=== PATIENT | female | born 1985 | race Caucasian/White ===

== ENCOUNTER 2016-08-01 16:24 | Emergency (ER) | payer OTHER ==
[2016-08-01 16:37] VITALS: BP 115/80
--- NOTE | 2016-08-01 16:46 | UC ---
[facility] HPI - HPI Summary HPI Summary: complaint of dentla pain in her mouth janey started approx 2 days ago now has fluid around it upper gum left side hasn't called a dentist yet has been taking ibuprofen 800 mg PO without relief denies fever ad chills currently taking kelfex for infection has been on keflex for 2 days - History of Current Complaint Chief Complaint: UCDentalProblem Stated Complaint: ORAL COMPLAINT Time Seen by Provider: 08/01/16 16:29 Hx Last Menstrual Period: 07/12/16- had & tubal - Allergies/Home Medications Allergies/Adverse Reactions: Allergies Allergy/AdvReac Type Severity Reaction Status Date / Time Amoxicillin Allergy Intermediate Hives Verified 08/01/16 16:37 Home Medications: Home Medications Cephalexin CAP* [Keflex CAP*] 500 mg PO QID 08/01/16 [History Confirmed 08/01/16 ] Ibuprofen TAB* [Motrin TAB* 800 MG] 800 mg PO ONCE 08/01/16 [History Confirmed 08/01/16] PMH/Surg Hx/FS Hx/Imm Hx Previously Healthy: No - healing from recent , surgical wound infection - Surgical History Surgical History: Yes Surgery Procedure, Year, and Place: x5. tubal 06/2016 - Family History Known Family History: Positive: Hypertension - father Negative: Cardiac Disease, Diabetes - Social History Occupation: Unemployed Lives: With Family Alcohol Use: None Substance Use Type: None Smoking Status (MU): Light Every Day Tobacco Smoker Type: Cigarettes Amount Used/How Often: 1/2 ppd Cessation Counseling: Patient Advised to Stop - Immunization History Most Recent Influenza Vaccination: [id number] Review of Systems Constitutional: Negative Skin: Other - surgical incesion abdomen Eyes: Negative ENT: Dental Pain Respiratory: Negative Cardiovascular: Negative Gastrointestinal: Negative Genitourinary: Negative Motor: Negative Neurovascular: Negative Musculoskeletal: Negative Neurological: Negative Psychological: Negative All Other Systems Reviewed And Are Negative: Yes Physical Exam Triage Information Reviewed: Yes Appearance: No Pain Distress, Well-Nourished, Obese Vital Signs: Initial Vital Signs Temp 97.5 F 08/01/16 16:32 Pulse 71 08/01/16 16:32 Resp 16 08/01/16 16:32 BP 115/80 08/01/16 16:32 Pulse Ox 100 08/01/16 16:32 Vital Signs Reviewed: Yes Eyes: Positive: Conjunctiva Clear ENT: Positive: Pharynx normal, TMs normal. Negative: Nasal congestion Dental: Positive: Abscess @ - tooth 4 Neck: Positive: No Lymphadenopathy Respiratory: Positive: Lungs clear, Normal breath sounds, No respiratory distress Cardiovascular: Positive: RRR, No Murmur, Pulses Normal Abdomen Description: Positive: Nontender, Soft Bowel Sounds: Positive: Present Musculoskeletal: Positive: No Edema Neurological: Positive: Alert Psychological: Positive: Other: - appears fatigued Skin: Positive: Other - surgical incision suprapubic area- 1x1cm are of erythema - no drainage,well approximated Dental Complaint Course/Dx - Course Course Of Treatment: exam completed. will change from keflex ot clindamycin d/ t dental abscess. surgical scar infection improving. followup with dentist - Differential Dx/Diagnosis Differential Diagnosis/Dx: Dental Abscess Provider Diagnoses: dental abscess Discharge - Discharge Plan Condition: Stable Disposition: HOME Prescriptions: Clindamycin CAP* [Cleocin 150 MG CAP*] 150 mg PO Q6H #40 cap oxyCODONE/Acetamin 5/325 MG* [Percocet 5/325 TAB*] 1 tab PO Q6H PRN #12 tab MDD 4 PRN Reason: Pain (Dental) Patient Education Materials: Dental Abscess (ED) Referrals: No Primary Care Phys,NOPCP [Primary Care Provider] - Additional Instructions: Stop keflex and start taking clindamycin as directed call your dentist for further treatment and followup care DENTAL ABSCESS What is a Dental Abscess? A dental abscess is an infection around the root of a tooth or in the gums or jawbone. The infection causes pus to collect, and a lump can appear. Dental abscesses often get their start when bacteria invade a decayed tooth; the decay may then travel to the gums or jawbone. Decay can also begin in the mouth when teeth are not brushed or flossed properly. Symptoms Might Include: In general, you'll start to have a fever, redness and swelling of the gums or cheek. If you have a lump it may feel hot. Other signs include tooth or mouth pain, a loose tooth, or not being able to close your mouth all the way. If the abscess spreads, your face, neck, or chest may swell. Treatment Recommendations: Rinse your mouth with warm water every hour or as needed to ease the pain. This will help draw the infection from the abscess. For pain, you may take non-prescription medicines such as acetaminophen ( Tylenol) or ibuprofen (Motrin, Advil). To help ease the pain, do not chew on the sore side for at least 2 days; you may need to limit yourself to a liquid diet. Putting ice on your face over the affected area may also relieve the pain. Apply the ice for 10 to 20 minutes out of every hour. Do not leave the ice on for long periods or you can get frostbite. If the abscess is drained, there may be a small hole or drain. Keep the area free of food by rinsing with water after eating. You'll need to return or be seen by a dentist to have the drain removed. The healthcare provider may have prescribed an antibiotic medicine. The medicine should be taken until it is completely gone, even if you are feeling better. If you stop taking the medicine early, the infection may not be completely gone, and the medication may not work the next time. To prevent abscesses: [place] regularly with a toothbrush recommended by your dentist. Floss daily and use a fluoride mouthwash, toothpaste, tablets, or supplements as instructed by your dentist or dental hygienist. Reduce the amount of sugar in your diet. Call Your Doctor or Return Here IF: You have a high temperature Your pain becomes worse You have any new symptoms or problems that may be due to the medicine you are taking You have new or increased swelling in your face, jaw, cheek, eye, or neck You have any other new symptoms that worry you
== END 2016-08-01 17:08 | disposition home or self-care (01) ==
LOC: UCCORT 16:24
DX: K04.7 Periapical abscess without sinus (principal); Z88.0 Allergy status to penicillin; F17.210 Nicotine dependence, cigarettes, uncomplicated
CPT/HCPCS: 99202; G0463

== ENCOUNTER 2016-09-23 14:27 | Emergency (ER) | payer OTHER ==
[2016-09-23 14:41] VITALS: BP 114/70
--- NOTE | 2016-09-23 14:56 | UC ---
Throat Pain/Nasal Robert HPI - HPI Summary HPI Summary: The patient comes in today for: 1. Sore throat: Onset: 2-3 days. Palliative/Provocative: swallowing makes it worse. Tylenol has not helped. Quality: [place] Region: Posterior pharynx. Severity: 5/10 Time: Constant. Associated symptoms: Fevers: None. Rhinitis: Yellow. Sinus pressure: Present. Cough: "a little one." Productive of yellow material. Upper tooth pain: Present. Recent antibiotics: None. Patient states that she had taken cephalexin with no problems. * - History of Current Complaint Chief Complaint: UCGeneralIllness Stated Complaint: SORE THROAT,EAR PAIN,COUGH Time Seen by Provider: 09/23/16 14:50 Hx Obtained From: Patient Hx Last Menstrual Period: 07/12/16- had & tubal ?: No - Allergies/Home Medications Allergies/Adverse Reactions: Allergies Allergy/AdvReac Type Severity Reaction Status Date / Time Amoxicillin Allergy Intermediate Hives Verified 09/23/16 14:41 Home Medications: Home Medications Acetaminophen [Acetaminophen Extra Stren] 1,000 mg PO DAILY 09/23/16 [History Confirmed 09/23/16] Escitalopram Oxalate [Lexapro] 20 mg PO DAILY 09/23/16 [History Confirmed ] Fluconazole 100 MG TAB* [Diflucan 100 MG TAB*] 100 mg PO DAILY 09/23/16 [ History Confirmed 09/23/16] PMH/Surg Hx/FS Hx/Imm Hx Previously Healthy: No - Yeast infection. Endocrine History Of: Denies: Diabetes, Thyroid Disease, Hyperthyroidism, Hypothyroidism, Dyslipidemia Cardiovascular History Of: Denies: Cardiac Disorders, Hypertension, Pacemaker/ICD, Myocardial Infarction , Congestive Heart Failure, Atrial Fibrillation, Deep Vein Thrombosis, Bleeding Disorders Respiratory History Of: Denies: COPD, Asthma, Bronchitis, Pneumonia, Pulmonary Embolism GI/ History Of: Denies: Gastroesophageal Reflux, Ulcer, Gastrointestinal Bleed, Gall Bladder Disease, Kidney Stones, Diverticulitis, Renal Disease, Urosepsis Neurological History Of: Denies: TIA, CVA, Dementia, Seizures, Migraine Psychological History Of: Reports: Anxiety, Depression - Post- depression : She delivered [birth year] Denies: Bipolar Disorder, Schizophrenia, Post Traumatic Stress Disorder Cancer History Of: Denies: Lung Cancer, Colorectal Cancer, Breast Cancer, Prostate Cancer, Cervical Cancer Other History Of: Negative For: HIV, Hepatitis B, Hepatitis C, Anticoagulant Therapy - Surgical History Surgical History: Yes Surgery Procedure, Year, and Place: x5. tubal 06/2016. Hx spherocytosis--spleen taken out 1997. - Family History Known Family History: Positive: Hypertension - father Negative: Cardiac Disease, Diabetes - Social History Occupation: Unemployed Alcohol Use: None Substance Use Type: None Smoking Status (MU): Light Every Day Tobacco Smoker Type: Cigarettes Amount Used/How Often: 1/2 ppd - Immunization History Most Recent Influenza Vaccination: [id number] Review of Systems Constitutional: Negative Skin: Negative Eyes: Negative, Other - She feels at times that her vision goes "crossed-eyed" from time to time. She would like information on local ophthalmologists. ENT: Sore Throat, Nasal Discharge Respiratory: Shortness Of Breath, Cough Cardiovascular: Negative Gastrointestinal: Negative Genitourinary: Negative All Other Systems Reviewed And Are Negative: Yes Physical Exam Triage Information Reviewed: Yes Appearance: Well-Appearing, No Pain Distress, Well-Nourished Vital Signs: Initial Vital Signs Temp 97.7 F 09/23/16 14:33 Pulse 60 09/23/16 14:33 Resp 18 09/23/16 14:33 BP 114/70 09/23/16 14:33 Pulse Ox 100 09/23/16 14:33 Vital Signs Reviewed: Yes Eyes: Positive: Conjunctiva Clear. Negative: Discharge ENT: Positive: Other: - Ears: Right: TM nguyen and translucent. Canal no erythema or edema. Left: TM red, retracted? Early Bullae? No canal erythema or edema. Sinuses: Frontal and maxillary were tender to palpation.. Negative: Hearing grossly normal, Pharyngeal erythema, Nasal congestion, Nasal drainage, Tonsillar swelling, Tonsillar exudate Dental: Negative: Gross Decay/Caries @, Dental Fracture @ Neck: Positive: Supple, Nontender, No Lymphadenopathy. Negative: Nuchal Rigidity Respiratory: Positive: Lungs clear, No respiratory distress, No accessory muscle use. Negative: Crackles, Wheezing Cardiovascular: Positive: RRR, No Murmur Abdomen Description: Positive: Nontender, No Organomegaly, Soft. Negative: Distended, Guarding Musculoskeletal: Positive: Strength Intact, ROM Intact, No Edema Neurological: Positive: Alert, Muscle Tone Normal Psychological: Positive: Age Appropriate Behavior, Consolable Skin: Negative: rashes, breakdown Throat Pain/Nasal Course/Dx - Differential Dx/Diagnosis Provider Diagnoses: Visual disturbance (resolved at this time). Sinusitis. Bronchitis. Left otitis media. Hx of pulpitis Discharge - Discharge Plan Condition: Stable Disposition: HOME Patient Education Materials: Sinusitis (ED), Acute Bronchitis (ED), Dental Abscess (ED) Referrals: No Primary Care Phys,NOPCP [Primary Care Provider] - 1 Week (Please see your primary care provider in about a week to see how well you are doing. If you get worse, please be seen sooner by your primary care provider or us. IF you don't have a primary care provider, please reference the list of local providers included with your discharge papers to get one. )
== END 2016-09-23 15:15 | disposition home or self-care (01) ==
LOC: UCCORT 14:27
DX: J40 Bronchitis, not specified as acute or chronic (principal); J32.9 Chronic sinusitis, unspecified; H53.9 Unspecified visual disturbance; H66.92 Otitis media, unspecified, left ear; Z88.1 Allergy status to other antibiotic agents; F17.210 Nicotine dependence, cigarettes, uncomplicated
CPT/HCPCS: 99212; G0463

== ENCOUNTER 2016-12-18 15:56 | Emergency (ER) | payer OTHER ==
[2016-12-18 16:29] VITALS: BP 112/63
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
[2016-12-18] MEDS ORDERED: HYDROcodone/ACETAMIN 5-325 MG* 1 TAB PO ONE (17:37)
--- NOTE | 2016-12-18 18:17 | RAD ---
INDICATION: Left foot injury COMPARISON: 2007 TECHNIQUE: AP, lateral, and oblique views were obtained. FINDINGS: The bony structures, joint spaces, and soft tissues are normal for age. IMPRESSION: NEGATIVE EXAMINATION.
--- NOTE | 2016-12-18 18:17 | RAD ---
INDICATION: Right wrist injury COMPARISON: None TECHNIQUE: AP, lateral, and oblique views were obtained. FINDINGS: The bony structures, joint spaces, and soft tissues are normal for age. IMPRESSION: NEGATIVE EXAMINATION.
--- NOTE | 2016-12-18 18:18 | RAD ---
INDICATION: Right hand injury COMPARISON: None TECHNIQUE: AP, lateral, and oblique views were obtained. FINDINGS: The bony structures, joint spaces, and soft tissues are normal for age. IMPRESSION: NEGATIVE EXAMINATION.
== END 2016-12-18 18:50 | disposition home or self-care (01) ==
LOC: UCCORT 15:56
DX: S60.221A Contusion of right hand, initial encounter (principal); S90.32XA Contusion of left foot, initial encounter; Y08.89XA Assault by other specified means, initial encounter; Z88.3 Allergy status to other anti-infective agents
CPT/HCPCS: 99212; G0463

== ENCOUNTER 2017-01-03 18:20 | Emergency (ER) | payer OTHER ==
[2017-01-03 18:59] VITALS: BP 132/82
== END 2017-01-03 20:28 | disposition left against medical advice (07) ==
LOC: UCCORT 18:20
DX: J02.9 Acute pharyngitis, unspecified (principal); K08.89 Other specified disorders of teeth and supporting structures; Z53.21 Procedure and treatment not carried out due to patient leaving prior to being seen by health care provider